=== PATIENT | female | born 1990 | race Caucasian/White ===

== ENCOUNTER 2020-05-12 22:40 | Emergency (ER) | payer MEDICAID ==
[2020-05-12 23:33] LABS: CHLORIDE,CL 103 mmol/L (98-107); SODIUM,NA 139 mmol/L (136-145)
[2020-05-12 23:35] LABS: ANION GAP 16.5 mmol/L (10-20)
--- NOTE | 2020-05-15 01:27 | EDM.PDOC ---
ED HPI GENERAL MEDICAL PROBLEM - General Chief Complaint: General Stated Complaint: Infection Time Seen by Provider: 05/12/20 22:45 Source of Information: Reports: Patient History Limitations: Reports: No Limitations - History of Present Illness INITIAL COMMENTS - FREE TEXT/NARRATIVE: Pt. reports to ER with complaints of cellulitis to R forearm/antecubital area. She presents to ER via EMS. She reports that she was seen in the clinic for the same, and was started on oral doxycyline and bactrim DS. She started on the antibotic earlier in the day and is concerned that it is not getting any better. Pt. also complains of chills. She has not been checking her temp, but she thinks she has a fever. She complains of fatigue and generally doesn't feel well. She denies any history of neck pain. No open lesions. She denies any chest pain or shortness of breath. She denies any IV drug use, and is not sure specifically what cause the infection. Onset Date: 05/10/20 Location: Reports: Upper Extremity, Right Quality: Reports: Burning Headache/Arm Pain Pain Score (Numeric/FACES): 9 - Related Data Allergies Allergy/AdvReac Type Severity Reaction Status Date / Time amoxicillin Allergy Rash Verified 05/13/20 00:26 melatonin Allergy Hives Verified 05/13/20 00:26 Home Meds: Home Meds Doxycycline [Doxycycline Hyclate] 100 mg PO Q12HR 05/13/20 [History] Triamcinolone Acetonide [Kenalog 0.1% Crm] 2 applic TOP BID 05/13/20 [History] lamoTRIgine 100 mg PO DAILY 05/13/20 [History] traZODone HCl [Trazodone HCl] 50 - 100 mg PO BEDTIME PRN 05/13/20 [History] Past Medical History [employer]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 Denies: Diaphoresis HEENT: Reports: No Symptoms Respiratory: Reports: No Symptoms Cardiovascular: Reports: No Symptoms Endocrine: Reports: No Symptoms GI/Abdominal: Reports: No Symptoms : Reports: No Symptoms Musculoskeletal: Reports: Arm Pain Skin: Reports: Rash, Erythema Neurological: Reports: No Symptoms Psychiatric: Reports: No Symptoms Hematologic/Lymphatic: Reports: No Symptoms Immunologic: Reports: No Symptoms ED EXAM, GENERAL - Physical Exam Exam: See Below Exam Limited By: No Limitations General Appearance: Alert, WD/WN, No Apparent Distress Head: Atraumatic, Normocephalic Neck: Normal Inspection, Supple, Non-Tender, Full Range of Motion Respiratory/Chest: No Respiratory Distress, Lungs Clear, Normal Breath Sounds, No Accessory Muscle Use, Chest Non-Tender Cardiovascular: Normal Peripheral Pulses, Regular Rate, Rhythm, No Edema, No Gallop, No JVD, No Murmur, No Rub Extremities: Arm Pain, Redness Neurological: Alert, Oriented, CN II-XII Intact, Normal Cognition, Normal Gait, Normal Reflexes, No Motor/Sensory Deficits Psychiatric: Normal Affect, Normal Mood Skin Exam: Erythema (R acntecubital area, extending into upper and lower arm. Area was highlighted in ink for further evaluation as needed. No obvious abscess formation.), Increased Warmth Course - Vital Signs Last Recorded V/S: Last Vital Signs Temp 36.4 C 05/12/20 22:45 Pulse 91 05/12/20 22:45 Resp 14 05/12/20 22:45 BP 153/98 H 05/12/20 22:45 Pulse Ox 100 05/12/20 22:45 - Orders/Labs/Meds Labs: Laboratory Tests 05/12/20 05/12/20 05/12/20 Range/Units 22:59 22:59 22:59 WBC 8.7 (4.0-10.0) x10^3/uL RBC 4.75 (4.00-5.50) x10^6/uL Hgb 14.6 (12.0-16.0) g/dL Hct 42.2 (33.0-47.0) % MCV 88.8 (78.0-93.0) fL MCH 30.7 (26.0-32.0) pg MCHC 34.6 (32.0-36.0) g/dL RDW Coeff of Christine 12.8 (10.0-15.0) % Plt Count 225 (130-400) x10^3/uL Neut % (Auto) 59.5 (50.0-80.0) % Lymph % (Auto) 32.8 (25.0-50.0) % Stewart % (Auto) 6.1 (2.0-11.0) % Eos % (Auto) 1.5 (0.0-4.0) % Baso % (Auto) 0.1 L (0.2-1.2) % PT 10.6 (9.5-12.3) SEC INR 1.0 L (2.0-3.5) Sodium 139 (136-145) mmol/L Potassium 3.5 (3.5-5.1) mmol/L Chloride 103 (98-107) mmol/L Carbon Dioxide 23 (21-32) mmol/L Anion Gap 16.5 (10-20) mmol/L BUN 10 (7-18) mg/dL Creatinine 1.0 (0.55-1.02) mg/dL Est Cr Clr Drug Dosing TNP Estimated GFR (MDRD) > 60 Glucose 98 (74-106) mg/dL Lactic Acid (0.4-2.0) mmol/L Calcium 8.7 (8.5-10.1) mg/dL Corrected Calcium 8.62 (8.5-10.1) mg/dL Total Bilirubin 0.6 (0.2-1.0) mg/dL AST 16 (15-37) U/L ALT 30 (14-59) U/L Alkaline Phosphatase 70 (46-116) U/L C-Reactive Protein 0.2 (<=0.9) mg/dL Total Protein 7.5 (6.4-8.2) g/dL Albumin 4.1 (3.4-5.0) g/dL Globulin 3.4 Albumin/Globulin Ratio 1.21 05/12/20 Range/Units 22:59 WBC (4.0-10.0) x10^3/uL RBC (4.00-5.50) x10^6/uL Hgb (12.0-16.0) g/dL Hct (33.0-47.0) % MCV (78.0-93.0) fL MCH (26.0-32.0) pg MCHC (32.0-36.0) g/dL RDW Coeff of Christine (10.0-15.0) % Plt Count (130-400) x10^3/uL Neut % (Auto) (50.0-80.0) % Lymph % (Auto) (25.0-50.0) % Stewart % (Auto) (2.0-11.0) % Eos % (Auto) (0.0-4.0) % Baso % (Auto) (0.2-1.2) % PT (9.5-12.3) SEC INR (2.0-3.5) Sodium (136-145) mmol/L Potassium (3.5-5.1) mmol/L Chloride (98-107) mmol/L Carbon Dioxide (21-32) mmol/L Anion Gap (10-20) mmol/L BUN (7-18) mg/dL Creatinine (0.55-1.02) mg/dL Est Cr Clr Drug Dosing Estimated GFR (MDRD) Glucose (74-106) mg/dL Lactic Acid 1.3 (0.4-2.0) mmol/L Calcium (8.5-10.1) mg/dL Corrected Calcium (8.5-10.1) mg/dL Total Bilirubin (0.2-1.0) mg/dL AST (15-37) U/L ALT (14-59) U/L Alkaline Phosphatase (46-116) U/L C-Reactive Protein (<=0.9) mg/dL Total Protein (6.4-8.2) g/dL Albumin (3.4-5.0) g/dL Globulin Albumin/Globulin Ratio Departure - Departure Time of Disposition: 00:15 Disposition: Home, Self-Care 01 Condition: Good Clinical Impression: Cellulitis - Discharge Information Instructions: Cellulitis, Adult Referrals: Kinjal Barraza MD [Primary Care Provider] - Forms: ED Department Discharge Additional Instructions: Your white count, inflammatory markers/labs for systemic infection (CRP, lactic acid), vital signs are all well within normal limits. It may take several days for the infection to start to improve. Your rash was outlined to help monitor the size of the cellulitis. It may get a bit larger before it decreases in size. Continue with the medications provided by Dr. Barraza. These are powerful antibiotics, but take some time to work. Recheck in clinic in 10-14 days, sooner if not gradually improving. Sepsis Event Note (ED) - Evaluation Sepsis Screening Result: No Definite Risk - Problem List Review Problem List Initiated/Reviewed/Updated: Yes - Assessment/Plan Plan: Your white count, inflammatory markers/labs for systemic infection (CRP, lactic acid), vital signs are all well within normal limits. It may take several days for the infection to start to improve. Your rash was outlined to help monitor the size of the cellulitis. It may get a bit larger before it decreases in size. Continue with the medications provided by Dr. Barraza. These are powerful antibiotics, but take some time to work. Recheck in clinic in 10-14 days, sooner if not gradually improving.
== END 2020-05-13 00:15 | disposition home or self-care (01) ==
LOC: VM.ED 22:40
DX: L03.113 Cellulitis of right upper limb (principal); F32.9 Major depressive disorder, single episode, unspecified; E66.9 Obesity, unspecified; Z88.1 Allergy status to other antibiotic agents; Z88.8 Allergy status to other drugs, medicaments and biological substances; Z79.899 Other long term (current) drug therapy; Z68.34 Body mass index [BMI] 34.0-34.9, adult
CPT/HCPCS: 36415; 80053; 83605; 85025; 85610; 86140; 86788; 87040; 99284

== ENCOUNTER 2022-07-12 21:35 | Emergency (ER) | payer MEDICAID ==
[2022-07-12 22:47] LABS: CHLORIDE,CL 104 mmol/L (98-107); SODIUM,NA 137 mmol/L (136-145)
[2022-07-12 22:48] LABS: ANION GAP 11.6 mmol/L (5-15); ESTIMATED GFR 68 mL/min (>=60)
== END 2022-07-12 23:35 | disposition home or self-care (01) ==
LOC: VM.ED 21:35
DX: R07.89 Other chest pain (principal); E66.9 Obesity, unspecified; Z68.26 Body mass index [BMI] 26.0-26.9, adult; Z88.0 Allergy status to penicillin; Z91.048 Other nonmedicinal substance allergy status; Z88.8 Allergy status to other drugs, medicaments and biological substances; Z79.899 Other long term (current) drug therapy
CPT/HCPCS: 36415; 71046; 80053; 84484; 85025; 93005; 99285

== ENCOUNTER 2022-08-16 23:40 | Emergency (ER) | payer MEDICAID ==
[2022-08-17] MEDS: Take Home: Sulfamethoxazole/Trimethoprim 800-160 MG Tab, 6 Tab Pack PO ONE (00:19)
== END 2022-08-17 00:25 | disposition home or self-care (01) ==
LOC: VM.ED 23:40
DX: N61.0 Mastitis without abscess (principal); E66.9 Obesity, unspecified; Z68.29 Body mass index [BMI] 29.0-29.9, adult; Z88.8 Allergy status to other drugs, medicaments and biological substances; Z88.0 Allergy status to penicillin; Z91.048 Other nonmedicinal substance allergy status
CPT/HCPCS: 99283; A9270-GY